=== PATIENT | male | born 1950 | race Caucasian/White ===

== ENCOUNTER → 2022-03-16 09:28 | Outpatient (CLI) | payer OTHER, SELFPAY ==
[2022-03-16 10:49] LABS: COVID19 -Nasal RAPID Negative (Negative)
== END ==
PROVIDERS: PCP Family Medicine; Visit Provider Specialist
DX: Z20.822 Contact with and (suspected) exposure to COVID-19 (principal)
CPT/HCPCS: 87635; C9803

== ENCOUNTER 2022-03-19 07:56 | Day surgery (SDC) | payer OTHER, SELFPAY ==
[2022-03-19] VITALS (8 sets, daily range): BP systolic 121–149; BP diastolic 66–95; PULSE 66–86; RESP 9–18; TEMP 36–36.2; O2SAT 93–98
--- NOTE | 2022-03-19 | DI.RAD.S_ITS ---
PROCEDURE: XR KUB INDICATIONS: Right nephrolithiasis TECHNIQUE: One view of the abdomen acquired. COMPARISON: Prior studies dated 01/26/2022 and 12/13/2019. FINDINGS: Surgical changes and devices: None. Bowel: Bowel gas pattern is normal. Soft tissues: Small calcifications are seen projecting in the region of right renal fossa and measures up to 5 mm in size not significantly changed from prior study. No gross left renal calcification is seen. Visualized solid organ contours appear normal in size. Bones: No suspicious bony lesions. IMPRESSION: Stable appearing right renal calculi. No left-sided renal calculi. No peritoneal free air. Dictated by: David Akers M.D. on 03/19/2022 at 8:50 Approved by: David Akers M.D. on 03/19/2022 at 8:51
[2022-03-19] MEDS: LACTATED RINGERS 1,000 ML 100 ML IV (08:43)
--- NOTE | 2022-03-19 09:02 | PM.PREOP ---
Pre-operative Note COVID-19 Criteria for continued procedure: Possibility delay results in more complex future surgery or treatment, Deterioration of the patient's condition or overall health, Delay expected to result in less-positive ultimate med/surg outcome and Non-surgical alternatives not available or appropriate per current SOC Interval Note History & Physical reviewed/Exam performed by Physician: Yes Changes to H&P: No
--- NOTE | 2022-03-19 10:19 | P.OP_ITS ---
Operative Date/Time/Diagnoses Date of procedure: 03/19/22 Time of procedure: 10:19 Pre-op diagnosis: 1. Right renal calculi. 2. History of renal colic. Post-op diagnosis: same Procedure & Clinicians Procedure: 1. Right extracorporeal shockwave lithotripsy (maximal power level 6.0 x 2000 shocks). Same procedure as scheduled: Yes Indications: 1. Right renal calculi. 2. History of renal colic. Surgeon: Neil Harman Click Yes if Unassisted: Yes Anesthesia Type: General Operative Notes Findings: 1. Index calculi identified and location consistent with preoperative imaging. Closure Type: not applicable Specimen(s): none sent Estimated Blood Loss (mL): 0 Blood products transfused: none Procedure in detail: The patient was positioned supine and was administered general anesthesia. The above-described index calculi identified in the X, Y, and Z plane. Lithotripsy was then commenced on the dominant stone at minimal power level for 200 shocks. A 2 minute pause was then conducted. Lithotripsy was then resumed and the power level was gradually increased to a maximal power level of 6.0. Stones and their fragments were real o'clock is as indicated during the treatment. At 2000 shocks was excellent evidence of stone comminution and no further treatment was administered. The patient was awakened, transferred to [place], and transferred to recovery in stable condition. Complications: none Post-operative Condition: stable Disposition: PACU Plan for aftercare: Discharge home.
[2022-03-19] MEDS: FUROSEMIDE 40 MG/4 ML VIAL 20 MG IV (10:38)
--- NOTE | 2022-03-19 10:43 | SUR.PHASEI ---
03/19/2211-4192-Elexn iv given. turned to left side. hob and [place] to keep hob down as ordered.
--- NOTE | 2022-03-19 11:54 | SUR.PHASEII ---
03/19/22-11:55am- patient voided x 3, light ruiz red, no further clots. strained , no stone fragments seen. placed strainers/cup in bag for patient to strain urine thru weekend. Sitting up in wheelchair. 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 another gingerale given.
== END 2022-03-19 12:15 | disposition home or self-care (01) ==
PROVIDERS: PCP Physician Assistant; Referring Provider Specialist; Visit Provider Specialist
PROC: (CPT 50590; principal; 2022-03-19 09:15)
DX: N20.0 Calculus of kidney (principal)
CPT/HCPCS: 50590; 74018; 82962; J1100; J1940; J2704; J3010

== ENCOUNTER → 2022-03-25 14:34 | Outpatient (ROUT) | payer OTHER, SELFPAY ==
[2022-03-30 16:36] LABS: Ca oxalate dihydrate 20 % (.); Ca oxalate monohydr 60 % (.); Hydroxyapatite 20 % (.); Size 2x2 mm (.)
== END ==
PROVIDERS: PCP Physician Assistant; Visit Provider Specialist
DX: N20.0 Calculus of kidney (principal)
CPT/HCPCS: 82365

== ENCOUNTER → 2022-06-16 11:28 | Outpatient (CLI) | payer OTHER, SELFPAY ==
[2022-06-16 12:37] LABS: COVID19 -Nasal RAPID Negative (Negative)
== END ==
PROVIDERS: PCP Physician Assistant; Visit Provider Specialist
DX: Z20.822 Contact with and (suspected) exposure to COVID-19 (principal)
CPT/HCPCS: 87635; C9803

== ENCOUNTER 2022-06-18 06:23 | Day surgery (SDC) | payer OTHER, SELFPAY ==
[2022-06-15 15:04] VITALS: BMI 25.5
--- NOTE | 2022-06-18 | DI.RAD.S_ITS ---
PROCEDURE: XR KUB INDICATIONS: Right nephrolithiasis TECHNIQUE: One view of the abdomen acquired. COMPARISON: [facility], CR, XR ABDOMEN 1 VIEW, 01/26/2022, 17:27. [facility], CR, XR KUB, 03/19/2022, 8:13. FINDINGS: Surgical changes and devices: None. Bowel: Bowel gas pattern is nonobstructive. Soft tissues: Previously seen calcifications projecting over the right renal shadow are not appreciated on this examination. Otherwise, no suspicious abdominal calcifications. Stable appearance of round punctate calcifications in the lower pelvis lateral to the urinary bladder shadow bilaterally. Visualized solid organ contours appear normal in size. Bones: No suspicious bony lesions. IMPRESSION: Abdomen without acute radiographic abnormalities. Previously seen calcifications overlying the right renal shadow are no longer visualized and presumably represent interval passage of renal stones. Dictated by: Tayo Julio M.D. on 06/18/2022 at 7:17 Approved by: Tayo Julio M.D. on 06/18/2022 at 7:20
[2022-06-18 06:45] VITALS: BMI 25.5
[2022-06-18 06:54] VITALS: BP 135/80; PULSE 55; RESP 16; TEMP 36.6; O2SAT 99
--- NOTE | 2022-06-18 07:10 | SUR.PREOP ---
Addendum entered by Gabby Guerrero R.N. 06/18/22 08:09: 808am- on way. patient discharged ambulatory. [facility] meet in [facility]. Addendum entered by Gabby Guerrero R.N. 06/18/22 07:56: 0755-Dr Harman at bedside chatting with patient on KUB results. pt informed to call office by MD. OR Notified. 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 Addendum entered by Gabby Guerrero R.N. 06/18/22 07:53: 745-returned from KUB #2. Await[address] Dr Harman to proceed for surgery. Addendum entered by Aleta Rueda R.N. 06/18/22 07:39: 0740-to xray for repeat kub. 0715-returned from xray. Original Note: 710-off unit for KUB by wheelchair.
[2022-06-18] MEDS: LACTATED RINGERS 1,000 ML 42 ML IV (07:23)
--- NOTE | 2022-06-18 07:41 | DI.RAD.S_ITS ---
PROCEDURE: XR KUB INDICATIONS: LAST FILM OVER EXPOSED? TECHNIQUE: One view of the abdomen acquired. COMPARISON: [facility], CR, XR ABDOMEN 1 VIEW, 05/12/2022, 10:48. [facility], CR, XR KUB, 06/18/2022, 7:08. FINDINGS: Surgical changes and devices: None. Bowel: Bowel gas pattern is nonobstructive. Soft tissues: Previously described right sided soft tissue calcifications projecting over the right renal shadow are not appreciated on this examination. Possible 2 mm punctate density projecting near the left renal shadow which may correspond with previously described possible left renal stone on May 12, 2022 study. No new suspicious abdominal calcifications. Visualized solid organ contours appear normal in size. Bones: No suspicious bony lesions. IMPRESSION: Previously described right-sided calcifications projecting over the right renal shadow are not appreciated on this study. Redemonstration of previously described 2 mm calcification projecting near the left renal shadow which may represent small left renal stone. Dictated by: Tayo Julio M.D. on 06/18/2022 at 10:16 Approved by: Tayo Julio M.D. on 06/18/2022 at 11:24
== END 2022-06-18 06:25 | disposition home or self-care (01) ==
PROVIDERS: PCP Physician Assistant; Referring Provider Specialist; Visit Provider Specialist
DX: N20.0 Calculus of kidney (principal); Z53.09 Procedure and treatment not carried out because of other contraindication
CPT/HCPCS: 50590; 74018; 82962